=== PATIENT | male | born 2000 | race Caucasian/White ===

== ENCOUNTER 2019-02-17 09:40 | Emergency (ER) | payer BC ==
[~2019-02-17] VITALS: Ht 182.9 cm; Wt 72.7 kg
[~2019-02-17 09:40] MED LIST: KUVAN PO
[2019-02-17 09:41] VITALS: TEMP 98.1
[2019-02-17] MEDS ORDERED: PERCOCET 325 MG1 TA2 PO (10:28)
[2019-02-17] MEDS ORDERED: CRUTCHES MC (10:39)
[2019-02-17 11:04] VITALS: BP 109/71; PULSE 70
== END 2019-02-17 11:15 | disposition home or self-care (01) ==
LOC: COL.ER 09:40
DX: S93.402A Sprain of unspecified ligament of left ankle, initial encounter (principal); X50.0XXA Overexertion from strenuous movement or load, initial encounter; Y92.59 Other trade areas as the place of occurrence of the external cause
CPT/HCPCS: J3010; Q4045